=== PATIENT | male | born 1950 | race Caucasian/White ===

== ENCOUNTER → 2016-11-02 | Outpatient (CLI) | payer OTHER, MEDICARE ==
[~2016-11-02] MED LIST: HYDR-3240 PO; LISI-170 PO; ROSU10TA PO; SITA1TAB5 PO
== END | disposition home or self-care (01) ==
LOC: PETCFH 09:39
PROVIDERS: ATTEND Internal Medicine Hematology & Oncology
DX: C61 Malignant neoplasm of prostate (principal); C77.5 Secondary and unspecified malignant neoplasm of intrapelvic lymph nodes
CPT/HCPCS: 78306; A9503

== ENCOUNTER → 2016-11-02 | Outpatient (CLI) | payer OTHER, MEDICARE ==
[~2016-11-02] MED LIST changes: +OMNIPAQUE 350 MG/ML, 100ML BOTTLE ONE
== END | disposition home or self-care (01) ==
LOC: CFH 09:37
PROVIDERS: ATTEND Internal Medicine Hematology & Oncology
DX: C77.5 Secondary and unspecified malignant neoplasm of intrapelvic lymph nodes (principal); C61 Malignant neoplasm of prostate; K80.20 Calculus of gallbladder without cholecystitis without obstruction; N28.1 Cyst of kidney, acquired
CPT/HCPCS: 71260; 74177; 82565; Q9967

== ENCOUNTER → 2017-04-29 | Outpatient (CLI) | payer MEDICARE, OTHER ==
[~2017-04-29] MED LIST changes: -OMNIPAQUE 350 MG/ML, 100ML BOTTLE ONE
== END | disposition home or self-care (01) ==
LOC: PETCFH 07:28
PROVIDERS: ATTEND Urology
DX: R59.0 Localized enlarged lymph nodes (principal); C61 Malignant neoplasm of prostate; M17.0 Bilateral primary osteoarthritis of knee; M19.012 Primary osteoarthritis, left shoulder; M19.011 Primary osteoarthritis, right shoulder
CPT/HCPCS: 74177; 78306; 82565

== ENCOUNTER 2017-08-23 07:08 | Day surgery (SDC) | payer MEDICARE, OTHER ==
[~2017-08-23] VITALS: Ht 182.9 cm; Wt 137.0 kg
[2017-08-23] MEDS ORDERED: SODIUM CHLORIDE 0.9% 1,000 ML IV SCH (07:33)
[2017-08-23] MEDS ORDERED: CEFAZOLIN PMX 1GM/50ML 50 ML ONE (07:48)
[2017-08-23 07:51] VITALS: BP 131/91
[2017-08-23] MEDS ORDERED: CEFAZOLIN PMX 1GM/50ML 50 ML IV STA (08:14)
[2017-08-23] MEDS ORDERED: LIDOCAINE 1%, 20ML ONE (09:45)
[2017-08-23] MEDS ORDERED: MIDAZOLAM 1 MG/ML, 2ML ONE (10:05)
[2017-08-23] MEDS ORDERED: FENTANYL PF 100 MCG/2ML ONE (10:05)
== END 2017-08-23 12:00 ==
LOC: OUT 07:08
PROVIDERS: ATTEND Urology
DX: Z45.2 Encounter for adjustment and management of vascular access device (principal); C61 Malignant neoplasm of prostate; E11.9 Type 2 diabetes mellitus without complications; I10 Essential (primary) hypertension; M10.9 Gout, unspecified; E78.5 Hyperlipidemia, unspecified
CPT/HCPCS: 36558; 76937; 77001; 99156; 99157; C1750; C1894; J0690; J1642; J2250; J3010; J3490

== ENCOUNTER → 2017-09-23 | Outpatient (CLI) | payer MEDICARE, OTHER ==
[~2017-09-23] MED LIST changes: +LIDOCAINE 1%, 20ML ONE
== END ==
LOC: RAD 12:12 → EDSTATUS 12:30 → RAD 17:00
PROVIDERS: ATTEND Urology
DX: Z45.2 Encounter for adjustment and management of vascular access device (principal); C61 Malignant neoplasm of prostate; E11.9 Type 2 diabetes mellitus without complications; I10 Essential (primary) hypertension; M10.9 Gout, unspecified; E66.9 Obesity, unspecified
CPT/HCPCS: 36589; 77001; J3490

== ENCOUNTER → 2017-12-18 | Outpatient (CLI) | payer OTHER ==
[~2017-12-18] MED LIST changes: -LIDOCAINE 1%, 20ML ONE
== END ==
LOC: CFH 10:49
PROVIDERS: ATTEND Urology
DX: Z13.820 Encounter for screening for osteoporosis (principal); C61 Malignant neoplasm of prostate; R97.21 Rising PSA following treatment for malignant neoplasm of prostate
CPT/HCPCS: 77080

== ENCOUNTER → 2018-07-08 | Outpatient (CLI) | payer OTHER, MEDICARE ==
[~2018-07-08] MED LIST changes: +OMNIPAQUE 350 MG/ML, 150 ML BOTTLE ONE
[2018-07-08 10:12] LABS: CREATININE 0.96 mg/dL (0.7-1.3)
== END | disposition home or self-care (01) ==
LOC: RAD 09:10
PROVIDERS: ATTEND Urology
DX: C61 Malignant neoplasm of prostate (principal); R59.9 Enlarged lymph nodes, unspecified; K80.20 Calculus of gallbladder without cholecystitis without obstruction
CPT/HCPCS: 36415; 74177; 78306; 82565; A9503; Q9967

== ENCOUNTER 2018-08-20 09:37 | Day surgery (SDC) | payer OTHER, MEDICARE ==
[~2018-08-20] VITALS: Ht 182.9 cm; Wt 133.1 kg
[~2018-08-20 09:37] MED LIST changes: -OMNIPAQUE 350 MG/ML, 150 ML BOTTLE ONE
[2018-08-20] MEDS ORDERED: SODIUM CHLORIDE 0.9% 1,000 ML IV SCH (09:56)
[2018-08-20] MEDS ORDERED: CEFAZOLIN PMX 1GM/50ML 50 ML IV ONE (10:00)
[2018-08-20 10:16] VITALS: BP 129/88
[2018-08-20] MEDS ORDERED: PLEASE ENTER HEIGHT AND WEIGHT MC SCH (10:30)
[2018-08-20] MEDS ORDERED: LIDOCAINE-MPF 1%, 5ML ONE (12:35)
[2018-08-20] MEDS ORDERED: NALOXONE 1 MG/ML, 2ML ONE (12:52)
[2018-08-20] MEDS ORDERED: MIDAZOLAM 1 MG/ML, 5ML ONE ×2 (12:52)
[2018-08-20] MEDS ORDERED: FLUMAZENIL 0.1 MG/1 ML, 5ML ONE (12:52)
[2018-08-20] MEDS ORDERED: FENTANYL PF 100 MCG/2ML ONE (12:52)
== END 2018-08-20 14:50 | disposition home or self-care (01) ==
LOC: OUT 09:37
PROVIDERS: ATTEND Internal Medicine Hematology & Oncology
DX: Z45.2 Encounter for adjustment and management of vascular access device (principal); C61 Malignant neoplasm of prostate; E11.9 Type 2 diabetes mellitus without complications; I10 Essential (primary) hypertension; M10.9 Gout, unspecified; F32.9 Major depressive disorder, single episode, unspecified; Z72.89 Other problems related to lifestyle; Z79.84 Long term (current) use of oral hypoglycemic drugs
CPT/HCPCS: 36561; 76937; 77001; 82962; 99156; 99157; C1788; C1894; J0690; J1642; J2250; J3010; J7030; J2310

== ENCOUNTER → 2018-11-26 | Outpatient (CLI) | payer OTHER ==
[~2018-11-26] MED LIST changes: +OMNIPAQUE 350 MG/ML, 100ML BOTTLE ONE; -ROSU10TA PO; +ROSU10TA2 PO
== END | disposition home or self-care (01) ==
LOC: CFH 11:06
PROVIDERS: ATTEND Pediatrics Pediatric Pulmonology
DX: C61 Malignant neoplasm of prostate (principal); C79.51 Secondary malignant neoplasm of bone; C78.02 Secondary malignant neoplasm of left lung; C78.01 Secondary malignant neoplasm of right lung; K80.20 Calculus of gallbladder without cholecystitis without obstruction; N28.1 Cyst of kidney, acquired; K43.9 Ventral hernia without obstruction or gangrene; R59.0 Localized enlarged lymph nodes; I26.99 Other pulmonary embolism without acute cor pulmonale; R91.8 Other nonspecific abnormal finding of lung field; G95.89 Other specified diseases of spinal cord; M89.9 Disorder of bone, unspecified
CPT/HCPCS: 71275; 74177; Q9967

== ENCOUNTER → 2018-11-27 | Outpatient (CLI) | payer MEDICARE, OTHER ==
[~2018-11-27] MED LIST changes: -OMNIPAQUE 350 MG/ML, 100ML BOTTLE ONE
== END | disposition home or self-care (01) ==
LOC: PETCFH 08:01
PROVIDERS: ATTEND Internal Medicine Hematology & Oncology
DX: C61 Malignant neoplasm of prostate (principal)
CPT/HCPCS: 78306; A9503

== ENCOUNTER 2019-04-06 16:03 | Emergency (ER) | payer OTHER ==
[~2019-04-06] VITALS: Ht 182.9 cm; Wt 117.3 kg
[~2019-04-06 16:03] MED LIST changes: +ABIR250T PO; +ALPR0.5T7 PO; +APIX5TAB PO; +FURO-93 PO; +HYDR-3622 PO; +METF500T17 PO; +PRED5TAB PO; +SITA50TA PO
[2019-04-06 17:08] LABS: MEAN CORPUSCULAR HEMOGLOBIN 28.4 pg (27.5-34.5); MEAN CORPUSCULAR VOLUME 85.9 fL (81-97); MEAN PLATELET VOLUME 6.9 fL (7.4-10.4); PLATELET COUNT 136 x10^3/uL (130-400); RED BLOOD COUNT 3.05 x10^6/uL (4.38-5.82); RED CELL DISTRIBUTION WIDTH 22.6 % (9.4-14.8)
[2019-04-06 17:12] LABS: INTERNATIONAL NORMALIZED RATIO 1.09 (0.93-1.1); PROTHROMBIN TIME 11.4 Seconds (9.6-11.5)
[2019-04-06 17:13] LABS: ALBUMIN 3.1 g/dL (3.4-5.0); ANION GAP 7 mmol/L (5-15); CALCIUM 9.4 mg/dL (8.5-10.1); CHLORIDE 101 mmol/L (98-107); CREATININE 0.74 mg/dL (0.7-1.3)
[2019-04-06 17:17] LABS: TROPONIN I < 0.015 ng/mL (0.000-0.045)
[2019-04-06 17:27] LABS: MD YES
[2019-04-06 17:30] LABS: <PLATELET ESTIMATE> ADEQUATE; <PLT MORPHOLOGY> NORMAL PLT MORPH; ANISOCYTOSIS 1+; BAND#(MANUAL) 0.94 x10^3/uL; BANDS%(MANUAL) 10 % (0-7); LYMPH#(MANUAL) 0.47 x10^3/uL (1-3.4); LYMPHS% (MANUAL) 5 % (22-44); METAMYELOCYTES# (MANUAL) 0.09 x10^3/uL (0-0); METAMYELOCYTES% (MANUAL) 1 % (0-1); MONOS#(MANUAL) 0.75 x10^3/uL (0.3-2.7); MONOS% (MANUAL) 8 % (2-9); MYELOCYTES# (MANUAL) 0.09 x10^3/uL (0-0); MYELOCYTES% (MANUAL) 1 % (0-0); NRBC % (MANUAL) 1 % (0-1); POLYCHROMASIA 1+; SEG#(MANUAL) 7.05 x10^3/uL (1.8-6.8); SEGS% (MANUAL) 75 % (42-75)
[2019-04-06] MEDS ORDERED: FUROSEMIDE 40 MG/4 ML IV ONE (18:00)
--- NOTE | 2019-04-06 18:27 | NUR ---
Attempted to access pt's port. Admitting MD at bedside. Will try when Admitting MD not at bedside.
--- NOTE | 2019-04-06 18:28 | NUR ---
Pt resting on gurney with call light within reach, nibp cuff, and continous pulse ox on.
--- NOTE | 2019-04-06 18:51 | NUR ---
Per verbal order from admitting MD, "we are on the fence about admission, we will see after receiving the one unit of blood."
--- NOTE | 2019-04-06 18:52 | NUR ---
Provided report to JANETTE Menjivar. All questions answered. JANETTE Menjivar to assume care of pt at this time.
[2019-04-06 19:42] VITALS: BP 100/60
[2019-04-06 20:03] VITALS: BP 104/60
--- NOTE | 2019-04-06 20:29 | NUR ---
Received report at 1900; assumed patient care. Port accessed per protocol, draws with ease, flushes with easy. Sent for blood. 1944 Blood to bedside, checks done in [place]; x2 RN. 2004 Blood rate increased from 75 to 150ml/hr 2024 increased to 275ml/hr
[2019-04-06] MEDS ORDERED: FUROSEMIDE 40 MG/4 ML ONE (20:36)
[2019-04-06 21:18] VITALS: BP 101/57
[2019-04-06 21:54] VITALS: BP 104/63
[2019-04-28] MEDS ORDERED: METH5TAB4 PO (11:21)
[2019-04-28] MEDS ORDERED: METF10007 PO (11:21)
[2019-04-28] MEDS ORDERED: TAMS-11 PO (11:21)
[2019-04-28] MEDS ORDERED: LEUP45SY IM (11:21)
[2019-04-28] MEDS ORDERED: DUTA1CPM4 PO (11:21)
[2019-04-28] MEDS ORDERED: PROC10TA78 PO (11:21)
[2019-04-28] MEDS ORDERED: ESCI10TA PO (11:21)
[2019-04-28] MEDS ORDERED: ONDA8TAB16 SL (11:21)
== END 2019-04-06 21:54 | disposition home or self-care (01) ==
LOC: ED 18:16 → EDIP 18:56 → UNDOADMIN 18:56 → ED 21:54
DX: D64.9 Anemia, unspecified (principal); J81.0 Acute pulmonary edema; D72.825 Bandemia; E11.9 Type 2 diabetes mellitus without complications; I50.9 Heart failure, unspecified; Z85.46 Personal history of malignant neoplasm of prostate
CPT/HCPCS: 36415; 36430; 71045; 80048; 82040; 83880; 84484; 85025; 85610; 85730; 86850; 86900; 86923; 93005; 96374; 99285; J1940; P9016